=== PATIENT | female | born 1960 | race American Indian/Alaskan Native ===

== ENCOUNTER 2018-08-07 19:14 | Emergency (ER) | payer OTHER, BC ==
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
[2018-08-07 22:12] VITALS: BP 138/75; PULSE 68; RESP 17; TEMP 98.2; O2SAT 96
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
== END 2018-08-07 22:12 | disposition home or self-care (01) ==
LOC: ED 19:14
DX: S39.012A Strain of muscle, fascia and tendon of lower back, initial encounter (principal); V49.9XXA Car occupant (driver) (passenger) injured in unspecified traffic accident, initial encounter; I10 Essential (primary) hypertension